=== PATIENT | female | born 1960 | race Caucasian/White ===

== ENCOUNTER 2017-04-09 11:40 | Outpatient (CLI) | payer OTHER | END 2017-04-09 11:48 | disposition home or self-care (01) | LOC: MAMO-SONO 11:40 | DX: Z12.31 Encounter for screening mammogram for malignant neoplasm of breast (principal); Z87.898 Personal history of other specified conditions; Z01.419 Encounter for gynecological examination (general) (routine) without abnormal findings; N60.12 Diffuse cystic mastopathy of left breast; N60.11 Diffuse cystic mastopathy of right breast; N81.12 Cystocele, lateral; N39.3 Stress incontinence (female) (male); E03.8 Other specified hypothyroidism; E07.89 Other specified disorders of thyroid ==

== ENCOUNTER → 2018-10-07 | Outpatient (CLI) | payer OTHER | END | disposition home or self-care (01) | LOC: MAMO-SONO 09-23 09:15 | DX: Z12.31 Encounter for screening mammogram for malignant neoplasm of breast (principal); Z87.898 Personal history of other specified conditions; N60.12 Diffuse cystic mastopathy of left breast; N60.11 Diffuse cystic mastopathy of right breast; E03.8 Other specified hypothyroidism; E04.2 Nontoxic multinodular goiter ==

== ENCOUNTER 2020-07-03 11:00 | Outpatient (CLI) | payer OTHER | END 2020-07-03 11:10 | disposition home or self-care (01) | LOC: MAMO-SONO 11:00 | DX: N60.12 Diffuse cystic mastopathy of left breast (principal); Z12.31 Encounter for screening mammogram for malignant neoplasm of breast; N60.11 Diffuse cystic mastopathy of right breast; E04.1 Nontoxic single thyroid nodule ==

== ENCOUNTER 2021-07-18 14:42 | Outpatient (CLI) | payer OTHER | END 2021-07-18 14:47 | disposition home or self-care (01) | LOC: MAMO-SONO 14:42 | DX: Z12.31 Encounter for screening mammogram for malignant neoplasm of breast (principal); N64.4 Mastodynia; E03.8 Other specified hypothyroidism; E04.1 Nontoxic single thyroid nodule ==

== ENCOUNTER 2021-08-13 11:00 | Outpatient (CLI) | payer OTHER | END 2021-08-13 11:01 | disposition home or self-care (01) | LOC: NUCLEAR 11:00 | DX: Z13.820 Encounter for screening for osteoporosis (principal); M81.0 Age-related osteoporosis without current pathological fracture ==

== ENCOUNTER 2022-08-12 09:46 | Outpatient (CLI) | payer OTHER | END 2022-08-12 09:55 | disposition home or self-care (01) | LOC: MAMO-SONO 09:46 | DX: E04.2 Nontoxic multinodular goiter (principal); E03.8 Other specified hypothyroidism; Z12.31 Encounter for screening mammogram for malignant neoplasm of breast; N64.4 Mastodynia ==

== ENCOUNTER 2023-09-23 12:14 | Outpatient (CLI) | payer OTHER | END 2023-09-23 12:16 | disposition home or self-care (01) | LOC: NUCLEAR 12:14 | DX: Z13.820 Encounter for screening for osteoporosis (principal); M81.0 Age-related osteoporosis without current pathological fracture ==

== ENCOUNTER 2023-09-23 12:26 | Outpatient (CLI) | payer OTHER | END 2023-09-23 12:33 | disposition home or self-care (01) | LOC: MAMO-SONO 12:26 | DX: N64.4 Mastodynia (principal); Z12.31 Encounter for screening mammogram for malignant neoplasm of breast; E03.8 Other specified hypothyroidism; E04.2 Nontoxic multinodular goiter ==

== ENCOUNTER 2024-08-22 14:36 | Outpatient (CLI) | payer OTHER | END 2024-08-22 14:39 | disposition home or self-care (01) | LOC: SONOGRAMA 14:36 | PROVIDERS: ATTEND Obstetrics & Gynecology Gynecology | DX: D25.1 Intramural leiomyoma of uterus (principal) ==

== ENCOUNTER 2024-09-27 13:46 | Outpatient (CLI) | payer OTHER | END 2024-09-27 13:49 | disposition home or self-care (01) | LOC: MAMO-SONO 13:46 | PROVIDERS: ATTEND Obstetrics & Gynecology Gynecology | DX: E03.8 Other specified hypothyroidism (principal); E04.2 Nontoxic multinodular goiter; Z12.31 Encounter for screening mammogram for malignant neoplasm of breast; N60.11 Diffuse cystic mastopathy of right breast; N60.12 Diffuse cystic mastopathy of left breast ==